=== PATIENT | female | born 1945 | race Caucasian/White ===

== ENCOUNTER → 2017-04-16 | Outpatient (CLI) | payer OTHER, MEDICARE | END | disposition home or self-care (01) | DX: M17.11 Unilateral primary osteoarthritis, right knee (principal); R26.2 Difficulty in walking, not elsewhere classified; M25.561 Pain in right knee; M25.661 Stiffness of right knee, not elsewhere classified; M62.81 Muscle weakness (generalized); Z74.1 Need for assistance with personal care | CPT/HCPCS: 97161 GP; 97165 GO; 97530 GP; 97535 GO; G8978 GP; G8979 GP; G8980 GP; G8987 GO; G8988 GO; G8989 GO ==

== ENCOUNTER 2017-05-06 21:39 | Inpatient (IN) | payer OTHER, MEDICARE ==
[~2017-05-06] VITALS: Ht 160 cm; Wt 111.3 kg
[~2017-05-06 21:39] MED LIST: ATORVASTATIN CA10 MG PO; CALTRATE 600 +1 EAC1 PO; COUMADIN5 MG PO; DAILY MULTIPLE1 EACH PO; ESCITALOPRAM OX10 MG PO; GLUCOSAMINE CO1 EAC3 PO; METOPROLOL SUCC25 MG PO; TRAVATAN Z5 ML LEFT EYE
[2017-05-07 06:09] VITALS: BP 135/80
[2017-05-07] MEDS ORDERED: LOVENOX120 MG/0.8 SC ×2 (06:22→06:24)
[2017-05-07 07:54] LABS: INTER. NORMALIZED RATIO 1.3
[2017-05-07 11:37] VITALS: BP 125/74
[2017-05-07 15:03] VITALS: BP 118/69
[2017-05-07 19:30] VITALS: BP 109/65
[2017-05-08] VITALS (7 sets, daily range): BP systolic 110–148; BP diastolic 56–71
[2017-05-08 05:18] LABS: HEMATOCRIT 34.9 % (36.0-46.0); MCV 93.1 FL (83-99)
[2017-05-08 05:19] LABS: HEMOGLOBIN 11.3 G/DL (11.9-15.5)
[2017-05-08 05:24] LABS: INTER. NORMALIZED RATIO 1.2
[2017-05-08 05:36] LABS: CHLORIDE 102 MEQ/L (99-109); CREATININE 0.9 MG/DL (0.6-1.3); GFR ESTIMATE (CALCULATED) > 59 mL/min/; GLUCOSE 122 mg/dL (70-99); POTASSIUM 4.5 MEQ/L (3.7-5.4); SODIUM 138 MEQ/L (136-147); UREA NITROGEN (BUN) 16 mg/dL (9-23)
[2017-05-09 04:25] VITALS: BP 122/69
[2017-05-09 05:56] LABS: HEMATOCRIT 32.1 % (36.0-46.0); HEMOGLOBIN 10.1 G/DL (11.9-15.5); MCV 93.9 FL (83-99)
[2017-05-09 06:09] LABS: INTER. NORMALIZED RATIO 1.6
[2017-05-09 08:29] VITALS: BP 117/67
[2017-05-09] MEDS ORDERED: SENNA PLUS TAB1 EACH PO (08:29)
[2017-05-09] MEDS ORDERED: LOVENOX40 MG/0.4 SC (08:29)
[2017-05-09] MEDS ORDERED: ENDOCET 5-3251 EACH PO (08:29)
[2017-05-09 11:45] VITALS: BP 124/63
== END 2017-05-09 15:09 | DRG 470 ==
LOC: ENRESERV 21:39 → 2SOUTH 05-07 05:31 → 3WEST 05-07 11:03 → 2SOUTH 05-07 13:17 → 3WEST 05-09 15:09
PROVIDERS: Orthopaedic Surgery
PROC: 0SRC0J9 Replacement of Right Knee Joint with Synthetic Substitute, Cemented, Open Approach (ICD-10-PCS; principal; 2017-05-07)
DX: M17.11 Unilateral primary osteoarthritis, right knee (principal); Z68.41 Body mass index [BMI] 40.0-44.9, adult; I10 Essential (primary) hypertension; E66.01 Morbid (severe) obesity due to excess calories; Z95.0 Presence of cardiac pacemaker; Z96.652 Presence of left artificial knee joint
CPT/HCPCS: 80048; 85014; 85018; 85610; 94799; 97530 GO; C1713; J0131; J0690; J1100; J1170; J1650; J1885; J2250; J2405; J3010; J7050; J7120